=== PATIENT | female | born 1950 | race Two or more races ===

== ENCOUNTER 2023-01-09 10:47 | Emergency (ER) | payer OTHER ==
[~2023-01-09] VITALS: Ht 162.6 cm; Wt 49.4 kg
[2023-01-09] MEDS ORDERED: ZOCOR40 MG PO (11:17)
== END 2023-01-09 13:19 | disposition home or self-care (01) ==
LOC: ER 10:47
DX: L98.8 Other specified disorders of the skin and subcutaneous tissue (principal); Z88.0 Allergy status to penicillin; Z88.2 Allergy status to sulfonamides; Z88.6 Allergy status to analgesic agent